=== PATIENT | male | born 1985 | race Caucasian/White ===

== ENCOUNTER 2018-05-15 11:15 | Inpatient (IN) | payer MEDICARE, MEDICAID ==
[~2018-05-15] VITALS: Ht 180.3 cm; Wt 96.5 kg
[~2018-05-15 11:15] MED LIST: ALBU18HF2 IH; MOME17SP NS
[2018-05-15 12:04] LABS: BASOPHILS # (AUTO) 0.1 X10'3 (0-0.2); EOSINOPHILS # (AUTO) 0.1 X10'3 (0-0.9); EOSINOPHILS % (AUTO) 1.2 % (0-6); HEMATOCRIT 48.1 % (42.0-52.0); HEMOGLOBIN 16.4 g/dl (14.0-17.9); LYMPHOCYTES # (AUTO) 1.1 X10'3 (1.1-4.8); MEAN CORPUSCULAR HEMOGLOBIN 29.8 PG (27.0-31.0); MEAN CORPUSCULAR VOLUME 87.6 FL (78-98); MEAN PLATELET VOLUME 8.1 FL (7.4-10.4); MONOCYTES # (AUTO) 0.3 X10'3 (0-0.9); MONOCYTES % (AUTO) 4.6 % (2-12); NEUTROPHILS # (AUTO) 5.8 X10'3 (1.8-7.7); NEUTROPHILS % (AUTO) 78.2 % (42-75); PLATELET COUNT 302 X10'3 (140-440); RED CELL DISTRIBUTION WIDTH 12.3 % (11.5-14.5); WHITE BLOOD COUNT 7.4 X10'3 (4.5-11.0)
[2018-05-15 12:18] LABS: ALANINE AMINOTRANSFERASE 590 U/L (12-78); ALBUMIN 3.8 G/DL (3.4-5.0); ALKALINE PHOSPHATASE 221 IU/L (46-116); ANION GAP 10 (8-16); ASPARTATE AMINO TRANSFERASE 168 U/L (10-37); BILIRUBIN,TOTAL 8.1 MG/DL (0.1-1.0); BLOOD UREA NITROGEN 12 MG/DL (7-18); CALCIUM 9.5 MG/DL (8.5-10.1); CHLORIDE 102 MMOL/L (99-107); GLUCOSE 129 MG/DL (70-104); POTASSIUM 3.7 MMOL/L (3.5-5.1); PROTHROMBIN TIME 10.2 SECONDS (9.0-12.0); SODIUM 140 MMOL/L (135-145); TOTAL CARBON DIOXIDE 28.2 MMOL/L (24-32); eGFR 86 ML/MIN
[2018-05-15 12:38] LABS: ALBUMIN/GLOBULIN RATIO 1.1 (1.1-1.5); TOTAL PROTEIN 7.4 G/DL (6.4-8.2)
[2018-05-15 14:14] LABS: COLOR,URINE AMBER (Yellow); UA COLLECTION TYPE CLN CATCH MIDSTREAM
[2018-05-15 14:19] LABS: CLARITY,URINE CLEAR (Clear)
[2018-05-15 14:25] LABS: SQUAMOUS EPITHELIAL CELL,UR FEW /LPF (FEW); WBC,URINE 0-4 /HPF (0-4); YEAST FEW /HPF (NEGATIVE)
[2018-05-15 14:26] LABS: BACTERIA,URINE 1+ /HPF (Neg)
[2018-05-15 14:28] LABS: LIPASE 77 U/L (73-393)
[2018-05-15] MEDS ORDERED: iohexol 300mg/ml 100ml inj. ONE (15:10)
[2018-05-15] MEDS: normal saline 1000ml 1,000 ML IV SCH (15:59)
[2018-05-15] MEDS ORDERED: acetaminophen 650mg rectal suppository RC PRN (16:00)
[2018-05-15] MEDS ORDERED: potassium Cl 40MEQ/NS 500ml 500 ML IV PRN ×2 (16:00)
[2018-05-15] MEDS ORDERED: morphine 2 MG/ML inj. syringe IV PRN (16:00)
[2018-05-15] MEDS ORDERED: magnesium Cl slow-release 64mg tablet PO PRN (16:00)
[2018-05-15] MEDS ORDERED: potassium Cl 20 mEq SR tablet PO PRN ×2 (16:00)
[2018-05-15] MEDS ORDERED: magnesium 4gm in 100ml NS 100 ML IV PRN (16:00)
[2018-05-15] MEDS ORDERED: ondansetron/PF 4mg/2ml inj IV PRN (16:00)
[2018-05-15] MEDS ORDERED: magnesium 1gm/100ml D5W IVPB 100 ML IV PRN (16:00)
[2018-05-15 17:30] VITALS: BP 141/86
[2018-05-15 18:00] VITALS: BP 119/66
[2018-05-16] VITALS (29 sets, daily range): BP systolic 102–155; BP diastolic 55–87
[2018-05-16] MEDS: normal saline 1000ml 1,000 ML IV SCH ×3 (02:16→11:22)
[2018-05-16 05:01] LABS: BASOPHILS % (AUTO) 0.4 % (0-1); EOSINOPHILS # (AUTO) 0.2 X10'3 (0-0.9); EOSINOPHILS % (AUTO) 2.4 % (0-6); HEMATOCRIT 44.2 % (42.0-52.0); HEMOGLOBIN 14.9 g/dl (14.0-17.9); LYMPHOCYTES # (AUTO) 1.4 X10'3 (1.1-4.8); LYMPHOCYTES % (AUTO) 19.1 % (21-51); MEAN CORPUSCULAR HEMOGLOBIN 29.5 PG (27.0-31.0); MEAN CORPUSCULAR HGB CONC 33.6 % (33.0-36.5); MEAN CORPUSCULAR VOLUME 87.8 FL (78-98); MEAN PLATELET VOLUME 8.6 FL (7.4-10.4); MONOCYTES # (AUTO) 0.5 X10'3 (0-0.9); MONOCYTES % (AUTO) 7.2 % (2-12); NEUTROPHILS # (AUTO) 5.4 X10'3 (1.8-7.7); NEUTROPHILS % (AUTO) 70.9 % (42-75); PLATELET COUNT 274 X10'3 (140-440); RED BLOOD COUNT 5.03 X10'6 (4.70-6.10); RED CELL DISTRIBUTION WIDTH 12.3 % (11.5-14.5); WHITE BLOOD COUNT 7.6 X10'3 (4.5-11.0)
[2018-05-16 05:24] LABS: ALANINE AMINOTRANSFERASE 449 U/L (12-78); ALBUMIN 3.1 G/DL (3.4-5.0); ALKALINE PHOSPHATASE 212 IU/L (46-116); ANION GAP 11 (8-16); ASPARTATE AMINO TRANSFERASE 116 U/L (10-37); BILIRUBIN,TOTAL 6.9 MG/DL (0.1-1.0); BLOOD UREA NITROGEN 11 MG/DL (7-18); BUN/CREATININE RATIO 11.2 (5.4-32.0); CHLORIDE 105 MMOL/L (99-107); CREATININE 0.98 MG/DL (0.60-1.10); GLUCOSE 89 MG/DL (70-104); MAGNESIUM 1.9 MG/DL (1.5-2.4); POTASSIUM 3.7 MMOL/L (3.5-5.1); SODIUM 142 MMOL/L (135-145); TOTAL CARBON DIOXIDE 26.1 MMOL/L (24-32); eGFR 88 ML/MIN
[2018-05-16 05:25] LABS: ALBUMIN/GLOBULIN RATIO 0.9 (1.1-1.5); TOTAL PROTEIN 6.4 G/DL (6.4-8.2)
[2018-05-16] MEDS: K and/or MAG REPLACEMENT MC SCH (08:00)
[2018-05-16] MEDS ORDERED: NO HOME MEDS (11:03)
[2018-05-16] MEDS ORDERED: levoFLOXACIN-Levaquin 500mg/D5 0 ML IV ONE (13:19)
[2018-05-16] MEDS ORDERED: MIDAZolam 5mg/5ml vial ONE (13:19)
[2018-05-16] MEDS ORDERED: meperidine/PF 100mg/ml syringe ONE (13:19)
[2018-05-16] MEDS ORDERED: diphenhydrAMINE 50 mg/ml inj ONE (13:19)
[2018-05-16] MEDS ORDERED: fentaNYL/PF 50MCG/1 ML 2ML syringe ONE ×2 (13:19→15:21)
[2018-05-16] MEDS ORDERED: glucagon, human recombinant 1mg kit ONE (13:20)
[2018-05-16] MEDS ORDERED: iohexol 300 MG/1 ML 50ml polymer ONE (13:20)
[2018-05-16] MEDS ORDERED: LIDOcaine Viscous 15ml cup ONE (13:20)
[2018-05-16] MEDS ORDERED: proCHLORperazine 10 MG/2 ml inj ONE (14:57)
[2018-05-16] MEDS ORDERED: ceFAZolin 1000mg inj ONE (17:35)
[2018-05-16] MEDS ORDERED: BUPIVAcaine/PF 2.5mg/ml (0.25%) 10ml vial ONE (17:36)
[2018-05-16] MEDS ORDERED: ringers solution, lacted 1,000 ML IV SCH (18:18)
[2018-05-16] MEDS ORDERED: morphine 4 MG/ML inj SYRINge IV PRN ×2 (18:20)
[2018-05-16] MEDS ORDERED: proCHLORperazine 10 MG/2 ml inj IV PRN (18:20)
[2018-05-16] MEDS ORDERED: ondansetron/PF 4mg/2ml inj IV PRN (18:20)
[2018-05-16] MEDS ORDERED: meperidine/PF 25mg/ml syringe IV PRN ×3 (18:20)
[2018-05-16] MEDS ORDERED: sevoflurane 250ml liquid IH ONE (18:25)
[2018-05-16] MEDS ORDERED: midazolam 2 mg/2 ml injection ONE (18:26)
[2018-05-16] MEDS ORDERED: fentaNYL /PF 50mcg/ml 5ml ampule ONE (18:27)
[2018-05-16] MEDS ORDERED: neostigmine methylsulfate 1 MG/ML 10ml vial ONE (19:05)
[2018-05-16] MEDS ORDERED: dexamethasone sod phosphate 4mg/ml inj. ONE (19:05)
[2018-05-16] MEDS ORDERED: LIDOcaine 2% (20mg/ml) 5ml vial ONE (19:05)
[2018-05-16] MEDS ORDERED: rocuronium 10mg/ml inj IV ONE (19:05)
[2018-05-16] MEDS ORDERED: ondansetron/PF 4mg/2ml inj ONE (19:05)
[2018-05-16] MEDS ORDERED: propofol inj 20 ML IV ONE (19:05)
[2018-05-16] MEDS ORDERED: glycopyrrolate 0.2mg/ml inj ONE (19:05)
[2018-05-16] MEDS ORDERED: morphine 2 MG/ML inj. syringe IV PRN (19:35)
[2018-05-17] VITALS: BP 126/61
[2018-05-17 00:15] VITALS: BP 125/61
[2018-05-17] MEDS: morphine 2 MG/ML inj. syringe IV PRN ×3 (01:09→12:14)
[2018-05-17 05:25] LABS: BASOPHILS % (AUTO) 0.2 % (0-1); EOSINOPHILS % (AUTO) 0 % (0-6); HEMOGLOBIN 14.1 g/dl (14.0-17.9); LYMPHOCYTES # (AUTO) 0.7 X10'3 (1.1-4.8); LYMPHOCYTES % (AUTO) 7.1 % (21-51); MEAN CORPUSCULAR HEMOGLOBIN 30.1 PG (27.0-31.0); MEAN CORPUSCULAR HGB CONC 34.4 % (33.0-36.5); MEAN CORPUSCULAR VOLUME 87.3 FL (78-98); MEAN PLATELET VOLUME 8.6 FL (7.4-10.4); MONOCYTES # (AUTO) 0.3 X10'3 (0-0.9); MONOCYTES % (AUTO) 2.9 % (2-12); NEUTROPHILS # (AUTO) 8.9 X10'3 (1.8-7.7); NEUTROPHILS % (AUTO) 89.8 % (42-75); PLATELET COUNT 282 X10'3 (140-440); RED BLOOD COUNT 4.69 X10'6 (4.70-6.10); RED CELL DISTRIBUTION WIDTH 12.9 % (11.5-14.5); WHITE BLOOD COUNT 9.9 X10'3 (4.5-11.0)
[2018-05-17 06:05] LABS: ALANINE AMINOTRANSFERASE 379 U/L (12-78); ALKALINE PHOSPHATASE 186 IU/L (46-116); ANION GAP 9 (8-16); ASPARTATE AMINO TRANSFERASE 103 U/L (10-37); BILIRUBIN,TOTAL 3.7 MG/DL (0.1-1.0); BLOOD UREA NITROGEN 13 MG/DL (7-18); BUN/CREATININE RATIO 13.7 (5.4-32.0); CALCIUM 8.8 MG/DL (8.5-10.1); CHLORIDE 105 MMOL/L (99-107); CREATININE 0.95 MG/DL (0.60-1.10); GLUCOSE 134 MG/DL (70-104); MAGNESIUM 1.8 MG/DL (1.5-2.4); POTASSIUM 4.5 MMOL/L (3.5-5.1); SODIUM 139 MMOL/L (135-145); TOTAL CARBON DIOXIDE 25.3 MMOL/L (24-32); eGFR > 90 ML/MIN
[2018-05-17 07:37] VITALS: BP 116/69
[2018-05-17] MEDS: normal saline 1000ml 1,000 ML IV SCH ×2 (07:59→12:13)
[2018-05-17] MEDS: K and/or MAG REPLACEMENT MC SCH (08:00)
[2018-05-17 12:07] VITALS: BP 111/56
[2018-05-17] MEDS ORDERED: TRAM50TA2 PO (15:30)
== END 2018-05-17 17:00 | disposition home or self-care (01) | DRG 419 ==
LOC: ER 11:15 → ED HOLD 15:59 → SUR 3N 17:29
PROVIDERS: ADMIT Internal Medicine; ATTEND Internal Medicine
PROC: BW211ZZ Computerized Tomography (CT Scan) of Abdomen and Pelvis using Low Osmolar Contrast (ICD-10-PCS; 2018-05-15)
PROC: 0FC98ZZ Extirpation of Matter from Common Bile Duct, Via Natural or Artificial Opening Endoscopic (ICD-10-PCS; 2018-05-16)
PROC: BF131ZZ Fluoroscopy of Gallbladder and Bile Ducts using Low Osmolar Contrast (ICD-10-PCS; 2018-05-16)
PROC: 0FT44ZZ Resection of Gallbladder, Percutaneous Endoscopic Approach (ICD-10-PCS; principal; 2018-05-16 18:25)
DX: K80.63 Calculus of gallbladder and bile duct with acute cholecystitis with obstruction (principal); J45.909 Unspecified asthma, uncomplicated; F17.200 Nicotine dependence, unspecified, uncomplicated; Z79.899 Other long term (current) drug therapy
CPT/HCPCS: 36415; 74177; 76700; 80053; 81001; 83690; 83735; 85025; 85610; 87070; 87088; 99152; 99153; 99285; A4620; A7000; G0378; J0690; J0780; J1100; J1200; J1610; J1956; J2001; J2175; J2250; J2270; J2405; J2704; J2710; J3010; J3490; J7030; J7120; Q9967

== ENCOUNTER 2021-05-25 12:18 | Emergency (ER) | payer MEDICARE, MEDICAID ==
[~2021-05-25] VITALS: Ht 182.9 cm; Wt 101.0 kg
[2021-05-25 13:09] VITALS: BP 165/69
[2021-05-25] MEDS ORDERED: TETanus/Pertussis (Acell)/Diphther VAC/PF (Tdap-Adult) 0.5ml syringe IMVAC ONE (13:15)
[2021-05-25] MEDS ORDERED: LIDOcaine 1% 30ml preserv. free vial IJ ONE (13:15)
[2021-05-25] MEDS ORDERED: CEPH250T PO (14:08)
== END 2021-05-25 14:38 | disposition home or self-care (01) ==
LOC: ER 12:19
DX: S61.211A Laceration without foreign body of left index finger without damage to nail, initial encounter (principal); Z72.89 Other problems related to lifestyle; Z79.2 Long term (current) use of antibiotics; Z20.3 Contact with and (suspected) exposure to rabies; X58.XXXA Exposure to other specified factors, initial encounter; Y93.89 Activity, other specified; Y92.89 Other specified places as the place of occurrence of the external cause; Y99.8 Other external cause status
CPT/HCPCS: 12001; 90471; 90715; 99283

== ENCOUNTER 2024-08-13 01:31 | Inpatient (IN) | payer BC, MEDICARE, MEDICAID ==
[~2024-08-13] VITALS: Ht 182.9 cm; Wt 100.5 kg
[2024-08-13 02:54] LABS: BILIRUBIN,URINE MODERATE (Neg); CLARITY,URINE CLEAR (Clear); COLOR,URINE YELLOW (Yellow); GLUCOSE, URINE NEGATIVE (Neg); KETONES,URINE 40 mg/dl (Neg); LEUKOCYTE ESTERASE ,URINE NEGATIVE (Neg); NITRITES, URINE NEGATIVE (Neg); OCCULT BLOOD,URINE NEGATIVE (Neg); PROTEIN,URINE NEGATIVE (Neg)
[2024-08-13 03:03] LABS: UA COLLECTION TYPE NON-SPECIFIED
[2024-08-13 03:55] LABS: BASOPHILS % (AUTO) 0.3 % (0-1); EOSINOPHILS % (AUTO) 0.1 % (0-6); HEMATOCRIT 44.6 % (42.0-52.0); HEMOGLOBIN 15.6 g/dl (14.0-17.9); LYMPHOCYTES # (AUTO) 0.9 X10'3 (1.1-4.8); LYMPHOCYTES % (AUTO) 10.2 % (21-51); MEAN CORPUSCULAR HEMOGLOBIN 30.2 PG (27.0-31.0); MEAN CORPUSCULAR VOLUME 86.1 FL (78-98); MEAN PLATELET VOLUME 7.5 FL (7.4-10.4); MONOCYTES # (AUTO) 0.7 X10'3 (0-0.9); MONOCYTES % (AUTO) 7.1 % (2-12); NEUTROPHILS # (AUTO) 7.6 X10'3 (1.8-7.7); NEUTROPHILS % (AUTO) 82.3 % (42-75); PLATELET COUNT 273 X10'3 (140-440); RED BLOOD COUNT 5.18 X10'6 (4.70-6.10); RED CELL DISTRIBUTION WIDTH 12.5 % (11.5-14.5); WHITE BLOOD COUNT 9.2 X10'3 (4.5-11.0)
[2024-08-13 04:10] LABS: ALANINE AMINOTRANSFERASE 624 U/L (12-78); ALBUMIN 4.1 G/DL (3.4-5.0); ALKALINE PHOSPHATASE 117 IU/L (46-116); ANION GAP 6 (8-16); ASPARTATE AMINO TRANSFERASE 483 U/L (10-37); BILIRUBIN,TOTAL 5.2 MG/DL (0.1-1.0); BLOOD UREA NITROGEN 10 MG/DL (7-18); BUN/CREATININE RATIO 11.4 (10.0-20.0); CALCIUM 9.3 MG/DL (8.5-10.1); CHLORIDE 102 MMOL/L (99-107); CREATININE 0.88 MG/DL (0.60-1.10); GLUCOSE 133 MG/DL (70-104); LIPASE 14 U/L (16-77); SODIUM 136 MMOL/L (135-145); eCRCL 122 ML/MIN; eGFR > 90 ML/MIN
[2024-08-13 04:14] LABS: ALBUMIN/GLOBULIN RATIO 1.2 (1.1-1.5); TOTAL PROTEIN 7.6 G/DL (6.4-8.2)
[2024-08-13] MEDS ORDERED: iohexol 300mg/ml 100ml inj. ONE (04:30)
[2024-08-13] MEDS: normal saline 1000ML IV soln IVB ONE (04:31)
[2024-08-13] MEDS: pantoprazole 40 MG vial IV SCH (07:39)
[2024-08-13] MEDS: morphine 2 MG/ML inj. syringe IV PRN (07:39)
[2024-08-13 08:33] LABS: APTT 26 SECONDS (22-32); PROTHROMBIN TIME 10.7 SECONDS (9.0-12.0)
[2024-08-13] MEDS: piperacillin/tazo 3.375gm/50ml 50 ML IV SCH (08:56)
[2024-08-13] MEDS ORDERED: mag hydrox/Alum hydrox/simeth 30ml oral suspension PO PRN (09:00)
[2024-08-13] MEDS ORDERED: acetaminophen 325mg tablet PO PRN (09:00)
[2024-08-13] MEDS ORDERED: magnesium sulf-water 2g/50mL 50 ML IV PRN (09:00)
[2024-08-13] MEDS ORDERED: potassium Cl 20 mEq SR tablet PO PRN ×2 (09:00)
[2024-08-13] MEDS ORDERED: magnesium Cl slow-release 64mg tablet PO PRN (09:00)
[2024-08-13] MEDS ORDERED: potassium Cl 40MEQ/1/2NS 520ml 520 ML IV PRN (09:00)
[2024-08-13] MEDS ORDERED: magnesium sulf-water 4G/100mL 100 ML IV PRN (09:00)
[2024-08-13] MEDS ORDERED: ondansetron/PF 4mg/2ml inj IV PRN (09:00)
[2024-08-13] MEDS ORDERED: magnesium hydroxide 30ml (MOM) UD suspension PO PRN (09:00)
[2024-08-13 09:22] LABS: BILIRUBIN,DIRECT 2.7 MG/DL (0-0.3)
[2024-08-13 09:25] LABS: ACETAMINOPHEN < 2.0 UG/ML (10-30)
[2024-08-13] MEDS ORDERED: ALBU17AE26 (10:32)
[2024-08-13] MEDS ORDERED: PHEN30SP5 NS (10:32)
[2024-08-13 10:48] VITALS: BP 141/85; PULSE 55; RESP 13; O2SAT 96
[2024-08-13 11:27] LABS: HEMOGLOBIN A1C 5.2 % (4.5-6.2)
[2024-08-13] MEDS: normal saline 1000ml 1,000 ML IV SCH (11:59)
[2024-08-13 14:39] VITALS: BP 118/77; PULSE 53; RESP 13
[2024-08-13] MEDS: docusate sod 100mg capsule PO SCH (19:28)
[2024-08-13 20:00] VITALS: RESP 16; O2SAT 97
[2024-08-13] MEDS: K and/or MAG REPLACEMENT MC SCH (20:00)
[2024-08-13 21:34] LABS: RED BLOOD COUNT 4.92 X10'6 (4.70-6.10)
[2024-08-13 22:00] VITALS: BP 124/78; PULSE 63; RESP 16; TEMP 98.8; O2SAT 97
[2024-08-13 22:20] VITALS: RESP 16
[2024-08-14 06:00] VITALS: BP 89/48; PULSE 69; RESP 16; TEMP 97.8; O2SAT 97
[2024-08-14 06:53] LABS: BASOPHILS % (AUTO) 0.9 % (0-1); EOSINOPHILS # (AUTO) 0.1 X10'3 (0-0.9); EOSINOPHILS % (AUTO) 1.4 % (0-6); HEMATOCRIT 41.9 % (42.0-52.0); HEMOGLOBIN 14.4 g/dl (14.0-17.9); LYMPHOCYTES # (AUTO) 1.7 X10'3 (1.1-4.8); LYMPHOCYTES % (AUTO) 30.6 % (21-51); MEAN CORPUSCULAR HEMOGLOBIN 30.3 PG (27.0-31.0); MEAN CORPUSCULAR HGB CONC 34.5 g/dL (33.0-36.5); MEAN CORPUSCULAR VOLUME 87.9 FL (78-98); MONOCYTES # (AUTO) 0.4 X10'3 (0-0.9); NEUTROPHILS # (AUTO) 3.3 X10'3 (1.8-7.7); NEUTROPHILS % (AUTO) 60.1 % (42-75); PLATELET COUNT 240 X10'3 (140-440); RED BLOOD COUNT 4.77 X10'6 (4.70-6.10); RED CELL DISTRIBUTION WIDTH 12.5 % (11.5-14.5); WHITE BLOOD COUNT 5.5 X10'3 (4.5-11.0)
[2024-08-14 07:02] LABS: PROTHROMBIN TIME 10.7 SECONDS (9.0-12.0)
[2024-08-14 07:18] LABS: ALANINE AMINOTRANSFERASE 621 U/L (12-78); ALBUMIN 3.1 G/DL (3.4-5.0); ALKALINE PHOSPHATASE 134 IU/L (46-116); ANION GAP 5 (8-16); ASPARTATE AMINO TRANSFERASE 235 U/L (10-37); BILIRUBIN,TOTAL 5.6 MG/DL (0.1-1.0); BLOOD UREA NITROGEN 9 MG/DL (7-18); BUN/CREATININE RATIO 9.2 (10.0-20.0); CALCIUM 8.3 MG/DL (8.5-10.1); CHLORIDE 110 MMOL/L (99-107); CREATININE 0.98 MG/DL (0.60-1.10); GLUCOSE 94 MG/DL (70-104); HDL CHOLESTEROL 72 MG/DL (35-60); LDL CHOLESTEROL 63 MG/DL (50-100); MAGNESIUM 2.1 MG/DL (1.5-2.4); POTASSIUM 4.3 MMOL/L (3.5-5.1); SODIUM 143 MMOL/L (135-145); TOTAL CARBON DIOXIDE 27.8 MMOL/L (24-32); eCRCL 110 ML/MIN; eGFR 85 ML/MIN
[2024-08-14 07:58] LABS: CHOL/HDL RATIO 1.9 (0.00-4.99); CHOLESTEROL 137 MG/DL (0-200); PHOSPHORUS 2.8 MG/DL (2.3-4.5); TOTAL PROTEIN 6.1 G/DL (6.4-8.2); TRIGLYCERIDES 44 MG/DL (20-135)
[2024-08-14 08:30] VITALS: RESP 14; O2SAT 97
[2024-08-14 10:00] VITALS: BP 99/62; PULSE 56; RESP 14; TEMP 98.1; O2SAT 97
[2024-08-14] MEDS: LORazepam 2 mg/ml vial IV STA (13:50)
[2024-08-14 18:30] VITALS: BP 106/66; PULSE 55; RESP 15; TEMP 98.2; O2SAT 98
[2024-08-14 22:00] VITALS: BP 121/64; PULSE 54; RESP 18; TEMP 97.8; O2SAT 98
[2024-08-15 05:14] LABS: HBSAG SCREEN Negative (Negative); HEP A AB, IGM Negative (Negative); HEP B CORE AB, IGM Negative (Negative); HEPATITIS C VIRUS ANTIBODY Non Reactive (Non Reactive)
[2024-08-15 05:19] LABS: PROTHROMBIN TIME 10.7 SECONDS (9.0-12.0)
[2024-08-15 05:28] LABS: PHOSPHORUS 4.3 MG/DL (2.3-4.5)
[2024-08-15 06:00] VITALS: BP 100/54; PULSE 62; RESP 16; TEMP 97.9; O2SAT 98
[2024-08-15 09:19] LABS: BASOPHILS # (AUTO) 0.1 X10'3 (0-0.2); BASOPHILS % (AUTO) 1.1 % (0-1); EOSINOPHILS # (AUTO) 0.1 X10'3 (0-0.9); EOSINOPHILS % (AUTO) 1.5 % (0-6); HEMATOCRIT 39.8 % (42.0-52.0); HEMOGLOBIN 13.9 g/dl (14.0-17.9); LYMPHOCYTES % (AUTO) 33.6 % (21-51); MEAN CORPUSCULAR HEMOGLOBIN 30.5 PG (27.0-31.0); MEAN CORPUSCULAR VOLUME 87.2 FL (78-98); MONOCYTES # (AUTO) 0.4 X10'3 (0-0.9); MONOCYTES % (AUTO) 7.4 % (2-12); NEUTROPHILS # (AUTO) 3.3 X10'3 (1.8-7.7); NEUTROPHILS % (AUTO) 56.4 % (42-75); PLATELET COUNT 240 X10'3 (140-440); RED BLOOD COUNT 4.56 X10'6 (4.70-6.10); RED CELL DISTRIBUTION WIDTH 12.7 % (11.5-14.5); WHITE BLOOD COUNT 5.8 X10'3 (4.5-11.0)
[2024-08-15 09:20] LABS: ALANINE AMINOTRANSFERASE 432 U/L (12-78); ALKALINE PHOSPHATASE 121 IU/L (46-116); ANION GAP 7 (8-16); ASPARTATE AMINO TRANSFERASE 91 U/L (10-37); BILIRUBIN,TOTAL 1.7 MG/DL (0.1-1.0); BLOOD UREA NITROGEN 11 MG/DL (7-18); BUN/CREATININE RATIO 9.6 (10.0-20.0); CALCIUM 7.7 MG/DL (8.5-10.1); CHLORIDE 107 MMOL/L (99-107); CREATININE 1.15 MG/DL (0.60-1.10); GLUCOSE 107 MG/DL (70-104); POTASSIUM 4.1 MMOL/L (3.5-5.1); SODIUM 139 MMOL/L (135-145); TOTAL CARBON DIOXIDE 25.2 MMOL/L (24-32); TOTAL PROTEIN 6.1 G/DL (6.4-8.2); eCRCL 94 ML/MIN; eGFR 70 ML/MIN
[2024-08-15] MEDS: pantoprazole 40mg Tablet.DR PO SCH (09:29)
[2024-08-15 09:30] VITALS: RESP 16; O2SAT 98
[2024-08-15 10:00] VITALS: BP 118/76; PULSE 68; RESP 16; TEMP 97.7; O2SAT 97
[2024-08-15] MEDS ORDERED: AMOX-115 PO (11:32)
[2024-08-15] MEDS ORDERED: LACT1CAP26 PO (11:32)
[2024-08-15] MEDS ORDERED: PANT40TA54 PO (11:32)
== END 2024-08-15 15:20 | disposition home or self-care (01) | DRG 392 ==
LOC: ER 01:31 → ED HOLD 06:47 → ORTHO 4S 17:55
PROVIDERS: ADMIT Internal Medicine Pulmonary Disease; ATTEND Family Medicine
PROC: BW211ZZ Computerized Tomography (CT Scan) of Abdomen and Pelvis using Low Osmolar Contrast (ICD-10-PCS; principal; 2024-08-13)
DX: K52.89 Other specified noninfective gastroenteritis and colitis (principal); K80.50 Calculus of bile duct without cholangitis or cholecystitis without obstruction; K76.0 Fatty (change of) liver, not elsewhere classified; E80.6 Other disorders of bilirubin metabolism; R74.01 Elevation of levels of liver transaminase levels; J34.2 Deviated nasal septum; J45.20 Mild intermittent asthma, uncomplicated; Z90.49 Acquired absence of other specified parts of digestive tract
CPT/HCPCS: 36415; 74177; 74181; 76700; 80053; 80061; 80074; 80329; 81003; 82140; 82248; 83036; 83605; 83690; 83735; 83880; 84100; 84145; 85025; 85045; 85610; 85730; 87040; 87081; 99285; G0378; J2060; J2270; J2470; J2543; J7030; Q9967